=== PATIENT | female | born 2005 | race Caucasian/White ===

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

== ENCOUNTER 2024-06-22 10:00 | Outpatient (CLI) | payer OTHER, SELFPAY ==
--- NOTE | ~2024-06-22 | US_ITS ---
US breast BI complete 06/22/2024 11:00 Indication: Breast cysts Procedure: High-resolution complete bilateral breast ultrasound including all 4 quadrants in the suba reolar locations Comparison: No prior studies for comparison. Findings: Left breast: At 1:00, 3 cm from the nipple there is an oval circumscribed hypoechoic mass w ith posterior acoustic enhancement and no internal vascularity. There is parallel orientation. This m ass measures 9 x 8 x 6 mm. At 7:00, 4 cm from the nipple there is an oval parallel oriented circumscr ibed hypoechoic mass measuring 8 x 5 x 7 mm without internal vascularity. There is subtle posterior a coustic enhancement. Right breast: At 5:00 in the subareolar location of the right breast in the area of palpable concern there is an oval heterogeneous predominantly hypoechoic mass measuring 1.6 x 1.5 x 1.2 cm. No interna l vascularity. There is posterior features. At 11:00, 7 cm from the nipple there is a parallel orient ed hypoechoic encapsulated mass measuring 1.8 x 1.4 x 0.8 cm. Impression: 1: Probable benign bilateral breast masses. BI-RADS CATEGORY 3-PROBABLY BENIGN FINDING RECOMMENDATION: Six-month follow-up limited bilateral breast ultrasound. Reviewed, dictated and finalized at location B. Impression: 1: Probable benign bilateral breast masses. BI-RADS CATEGORY 3-PROBABLY BENIGN FINDING RECOMMENDATION: Six-month follow-up limited bilateral breast ultrasound.
--- OUTSIDE RECORDS SUMMARY | 2024-06-22 11:05 | XMS_ITS | Data Portability ---
Author Organization [place] [facility] [email or web address], Main Office Address [address] [place] [address] Assessment Encounter Date Assessment Date Assessment LastModified by Organization Details LastModified Time 07/05/2022 07/05/2022 YOSSI Gallegos Call office if worse, ER if life-threatening illness RTC in 1 year and p.r.n. She voiced understanding of plan and agrees Not available 07/05/2022 15:33:53 10/21/2022 10/21/2022 YOSSI Gallegos [facility]-10/21/22 Call office if worse, ER if life-threatening illness RTC in 1 year and p.r.n. She voiced understanding of plan and agrees Not available 10/21/2022 13:09:58 Plan of Treatment Reminders Order Date Submit Date Provider Last Modified By Organization Details Last Modified Time Details Appointments None record ed. Lab None record ed. Referral None record ed. Procedures None record ed. Surgeries None record ed. Imaging None record ed. Medication Orders None record ed. Patient TargetsNo targets recorded. Patient Instructions Encounter Date Encounter Id Patient Instructions Last Modified By Organization Details Last Modified Time 10/21/2022 [id number] INFLUENZA VACCIN E TD/TDAP Recommended today, patient declined Ordered P atient will get at local pharmacy/health department MAMMOGRAM Recommended today, but patient declined Ordered N o screening indicated at this time/ no family history CERVICAL SCREENING/PELVIC EXAMINATION No screening necessary patient is up to date COLORECTAL SCREENING Recommended today, but patient declined Ordered C olonoscopy declined. Cologuard ordered No screening necessary until age 45 DEPRESSION SCREENING Continue current medication BMI Overweight Appropr iate NUTRITION Continue healthy eating & exercise PHYSICAL ACTIVITY Appropriate VISION Ordered Recommende d today ALCOHOL USE No alcohol use TOBACCO USE non smoker SEXUALLY ACTIVE Yes, Patient is in monogamous relationship Yes, Safe sex practices, condom use, and other forms of contraceptives that are available were discussed with patient GLUCOSE SCREENING LIPID SCREENING [email or web address] Not available 10/21/2022 13:09:35 Reason for Referral None Reported. Results Created Date Observation Date Name Description Value Unit Range Abnormal Flag Note LastModifiedBy Organization Detail LastModifiedTime 10/03/1910/02/2020 US, pelvi s [facility] [address] [facility] [address], [facility] [place] [address] Zachariah t Name: LY BOND [employer] ion #: [id number] Sex: F : 2005 0 Locati on: RAD Attend ing Physic kelvin: HURSANTOS Christopher MICHEAL Orderi ng Physic kelvin: HURSANTOS Christopher MICHEAL Exam Date: 10/03/19 12:02 PM Exam Name: US PELVIS NON OB Admitt ing Diagno sis(es ): RADIOL OGY REPORT - FINAL EXAM: US PELVIS NON OB HISTOR Y: irregu lar period s COMPAR DAVI: None availa ble. TECHNI QUE: Trans abdomi nal only ultras ound was perfor med. FINDIN GS: Uterus : The uterus measur es 6.9 x 3.5 x 3.7 cm. The myomet rial echo appear ance iswith in normal limits . The endome trium measur es 4.6 mm in thickn ess. Right ovary: The right ovary is obscur ed by bowel, this a techni julio c limiti ng factor in evalua tion of the right ovary. Page 1 of 2 [facility] Zachariah t Name: LY BOND [employer] ion #: [id number] Sex: F : 2005 0 Exam Date: 10/03/19 12:02 PM Exam Name: US PELVIS NON OB Admitt ing Diagno sis(es ): Left ovary: The left ovary is obscur ed by bowel, this a techni julio c limiti ng factor in evalua tion of the left ovary. Cul-de -sac: Unrema rkable IMPRES MADDI: Unrema rkable limite d examin ation. Create d and electr onical ly signed by: Wesley medrano MD Signed Date: 10/03/19 2:29 PM (CT) Dictat ed by: Wesley medrano MD (CT) (CT) Page 2 of 2 [id number] [facility] (Imaging) [address] [place], [address], 06/02/2022 02:32:41 01/06/2001/05/2021 US, pelvi s No observ ation record ed. [id number] [facility] ([facility]) [address] [place], [address], 06/02/2022 02:32:41 Result Notes None recorded. Problems Name Problem SNOMED Code Status Onset Date Resolution Date Notes Provider Name and Address Organization Details Recorded Time Migraine 67842506 Active 2022 BRODIE Shipman [address] [facility], [place] [address], [place], [address], [employer] 3 15:33:56 Mixed anxiety and depressive disorder 051460917 Active 2022 BRODIE Shipman [address] [address], [place], [address], [place] [employer] 3 15:34:00 Attention deficit hyperactivity disorder 410914834 Active 2022 BRODIE Shipman [address] [address], [place], [address], [place] [employer] 3 15:34:18 Problem Notes None recorded. Procedures Surgical History Date Name Laterality Status Provider Name and Address Organization Details Recorded Time other completed Not Available [employer] 04/2022 02:26:28 Imaging Results Imaging Date Name Status LastModified by Organ[facility] Details LastModified Time 10/02/2020 US, pelvis completed [id number] [facility] (Im[facility]) [address] [place], [address], 06/02/2022 02:32:41 01/05/2021 US, pelvis completed [id number] [facility] (Im[facility]) [address] [place], [address], 06/02/2022 02:32:41 Procedure Notes None recorded. Medical Equipment None Reported. Allergies No known drug allergies Medications Name Sig Start Date Stop Date Status Note LastModified by Organization Details LastModified Time amoxicillin 500 mg capsule TK ONE C PO TID TAT active Not Available Not Available No t Available hydrocodone 5 mg-acetamin ophen 325 mg tablet TK 1 OR 2 TS PO Q 6 H PRN P active Not Available Not Available No t Available sumatriptan 25 mg tablet TAKE 1 TABLET ONCE NEEDED FOR MIGRAINE MAY REPEAT IN 2 HOURS IF NO RELIEF. MAX 2 TABS/24 HRS. active Not Available Not Available No t Available methylpheni date 5 mg tablet TAKE 1 TABLET BY MOUTH DAILY AT 3 TO 4 PM active Not Available Not Available No t Available sulfamethox azole 800 mg-trimetho prim 160 mg tablet TAKE 1 TABLET BY MOUTH TWICE DAILY 07/05 completed Not Available Not Available Not Available propranolol 10 mg tablet TAKE 1 TABLET BY MOUTH TWICE A DAY active Not Available Not Available No t Available misoprostol 200 mcg tablet INSERT 2 TABLETS VAGINALLY 4 HOURS PRIOR TO PROCEDURE 10/21 completed Not Available Not Available Not Available fluoxetine 10 mg capsule TAKE 1 CAPSULE BY MOUTH EVERY DAY active Not Available Not Available No t Available norethindro ne acetate 1 mg-ethinyl estradiol 20 mcg tablet Take 1 tablet every day by oral route for 90 days. 07/05 completed Not Available Not Available Not Available fluoxetine 20 mg capsule TAKE 1 CAPSULE BY MOUTH EVERY DAY active Not Available Not Available No t Available naproxen 500 mg tablet TAKE 1 TABLET BY MOUTH TWICE A DAY WITH MEALS active Not Available Not Available No t Available hydroxyzine pamoate 25 mg capsule TAKE 1 CAPSULE DAILY NEEDED FOR ANXIETY active Not Available Not Available No t Available methylpheni date CD 20 mg biphasic 30-70 capsule,ext ended release TAKE 1 CAPSULE BY MOUTH EVERY DAY active Not Available Not Available No t Available drospirenon e 3 mg-ethinyl estradiol 0.02 mg tablet TAKE 1 TABLET BY MOUTH EVERY DAY CONTINUOU SLY SKIPPING PLACEBO TABLETS 10/21 completed Not Available Not Available Not Available drospiren-e .estrad-l.m efol 3 mg-0.02 mg-0.451 mg(24)/0.45 1 mg(4)tablet 10/21 completed Not Available Not Available Not Available Dee 14 mcg/24 hr (up to 3 years) 13.5 mg intrauterin e device Take by intrauter ine route. active Not Available Not Available No t Available Isibloom 0.15 mg-0.03 mg tablet TAKE 1 TABLET BY MOUTH EVERY DAY 07/05 completed Not Available Not Available Not Available Vitals Date Recorded Body mass index (BMI) Body height Body temperature Body weight Systolic blood pressure Diastolic blood pressure Provider Name and Address Organization Details Last Updated DateTime 1 20.7 kg/m2 172.72 cm 96.9 [degF] 55736.5 6 g 110 mm[Hg] 60 mm[Hg] Not Available [facility] 3 02:28:18 Date Recorded Body weight Body mass index (BMI) Percentile per age and sex Body mass index (BMI) Body height Body temperature Heart rate Oxygen saturation Oxygen saturation in Arterial blood by Pulse oximetry Systolic blood pressure Diastolic blood pressure Provider Name and Address Organization Details Last Updated DateTime 3 56790.9 7 g 47 % 21.1 kg/m2 170.18 cm 97.6 [degF] 100 /min 98 % 98 % 116 mm[Hg] 74 mm[Hg] Jill Salinas MA [facility] [employer] [facility] 3 15:11:57 Date Recorded Body height Body mass index (BMI) Percentile per age and sex Body mass index (BMI) Body weight Body temperature Heart rate Oxygen saturation Oxygen saturation in Arterial blood by Pulse oximetry Systolic blood pressure Diastolic blood pressure Provider Name and Address Organization Details Last Updated DateTime 3 170.18 cm 46 % 21.1 kg/m2 14702.9 7 g 97.9 [degF] 90 /min 99 % 99 % 114 mm[Hg] 70 mm[Hg] Jill Salinas MA [facility] [email or web address] 3 10:43:52 Social History Question Answer Notes LastModified by Organizat ion Details LastModified Time Tobacco Smoking Status Never Smoker Not Available [facility] 06/02/2022 02:25:30 What Is Your Level Of Alcohol Consumption? None [id number] Information not available 06/02/2022 What Is Your Level Of Caffeine Consumption? Moderate [id number] Information not available 06/02/2022 In The 14 Days Before Symptom Onset, Have You Had Close Contact With A Laboratory-confi rmed COVID-19 While That Case Was Ill? No [id number] Information not available 06/02/2022 In The 14 Days Before Symptom Onset, Have You Had Close Contact With A Person Who Is Under Investigation For COVID-19 While That Person Was Ill? No [id number] Information not available 06/02/2022 Are You Currently Employed? No Information not available 07/05/2022 What Type Of Diet Are You Following? REGULAR Information not available 07/05/2022 Which Illicit Or Recreational Drugs Have You Used? None [id number] Information not available 06/02/2022 Do You Or Have You Ever Used E-cigarettes Or Vape? Never Used Electronic Cigarettes [id number] Information not available 06/02/2022 What Is The Fluoride Status Of Your Home? Unknown Information not available 07/05/2022 Are There Any Guns Present In Your Home? Yes Information not available 07/05/2022 Do You Use Insect Repellent Routinely? No Information not available 07/05/2022 Where Do You Live? [facility] Information not available 07/05/2022 What Was The Date Of Your Most Recent Tobacco Screening? 10/21/2022 Information not available 10/21/2022 Do You Have Any Pets? Yes Information not available 07/05/2022 What Is Your Relationship Status? Single Information not available 07/05/2022 Do You Use Your Seat Belt Or Car Seat Routinely? Yes Information not available 07/05/2022 Do You Have Smoke And Carbon Monoxide Detectors In Your Home? Yes Information not available 07/05/2022 Are You Passively Exposed To Smoke? No Information not available 07/05/2022 Are There Any Smokers In Your House? No Information not available 07/05/2022 Do You Feel Stressed (tense, Restless, Nervous, Or Anxious, Or Unable To Sleep At Night)? [id number] Information not available 07/05/2022 Do You Use Any Illicit Or Recreational Drugs? No Information not available 07/05/2022 Do You Use Sunscreen Routinely? Yes Information not available 07/05/2022 Do You Have Any Dietary Restrictions? No Information not available 07/05/2022 Do You Or Have You Ever Used Any Other Forms Of Tobacco Or Nicotine? No Information not available 07/05/2022 Sex: Unknown Functional Status Question Answer Note LastModified by Organization D etails LastModified Time What is your exercise level? Heavy Information not available 07/05/2022 Mental Status None recorded. Family History Relationship Description Onset Age of this Age Resolved Age Notes LastModified by Organization Details LastModified Time Father No current problems or disability [id number] Not available 06/02/2022 02:26:30 Mother No current problems or disability [id number] Not available 06/02/2022 02:26:30 Medical History Condition Response ANXIETY DISORDER Y DEPRESSION (INCLUDING POST ) Y Gynecological History Statement/Question Response Abnormal Pap N Date of Last Pap Smear Current Control Method None Age at Menarche 13 Date of LMP 06/17/2020 Obstetrics History GPAL:G 0 P 0 0 0 0 Past Encounters Encounter ID Performer Location Encounter Start Date Encounter Closed Date Diagnosis/Indication Diagnosis SNOMED-CT Code Diagnosis ICD10 Code Diagnosis Note [id number] _ATHENA_M IGRATION_ DEFAULT_1 _1 , 06/19/2020 00:00:00 06/19/2020 15:53:33 [id number] _ATHENA_M IGRATION_ DEFAULT_1 _1 , 01/05/2021 00:00:00 01/05/2021 15:19:28 [id number] BRODIE Shipman_[facility] Internal Med [facility] [address] [facility] [address] [place] [address] 07/05/2022 15:00:55 07/05/2022 15:27:30 Migraine 85048150 G43.909 follows neurology at [facility] n propranolo l, prn naproxen, prn sumatripta n Mixed anxi ety and depressive disorder 723185384 F41.8 follows psychiatry - Dr. Carrera fluoxetine , prn hydroxyzin ecall office if any change in mood or behavior Uses oral contraception 8291226 Z30.41 on continuous dosing due to menstrual migrainefo tigre DIRECTOR OF SURGERY- Dr. Gallegos Attention deficit hyperactivity disorder 778235293 F90.9 follows psychiatry as aboveon ritalin [id number] BRODIE Shipman [facility] [address] [facility], [address] [place] [address] 10/21/2022 10:37:26 10/21/2022 11:05:59 Adult health examination 954310916 Z00.01 Migraine 77298229 G43.90 9 follows neurology at [facility] n propranolo l, prn naproxen, prn sumatripta n Mixed anxi ety and depressive disorder 145218225 F41.8 follows psychiatry - Dr. Carrera fluoxetine , prn hydroxyzin ecall office if any change in mood or behavior Attention deficit hyperactivity disorder 146275973 F90.9 follows psychiatry as aboveon ritalin Uses oral contraception 3779608 Z30.41 on continuous dosing due to menstrual migrainefo tigre DIRECTOR OF SURGERY- Dr. Gallegos Depression screening 171 494128 Z13.31 Normal bod y mass index 19614028 Z68.21 recommend healthy, well balanced mealsfocus on lean meats, fresh vegetables , fresh fruits, whole grainsredu ce fast/proce ssed foods or eating out to no more than 1-2 times per weekaim to get 30 min of exercise most days of the week- walking is a great choicealso recommend resistance training 2-3 times per week Health Concerns Section Related Observation LastModified by Organization Detai ls LastModified Time None Recorded Concern Status LastModified by Organization Details LastModified Time None Recorded Advance Directives Directive None Recorded Payers Encounter Date Sequence Insurance Name Policy Number Policy Delgado Covered Member ID Delgado Member ID Guarantor Name 07/05/2022 1 [facility] [id number] Christiana Bond [id number] Ly Bond 10/21/2022 1 [facility] ([facility] [id number] Christiana Christopher Varun [id number] Ly Bond Notes Date Note Type Note Provider Name and Address Organization Details Recorded Time 07/05/2022 text/html Ly presents today to establish care. 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 Smith [facility], [facility]. Student is a senior, lives with parents, planning to study environmental science in college Past hx:migraineADHDanxi ety/depressionon OCPs She [facility]. She reports the migraines are much better on her current combination of meds. She is down to about 2 per week. Initially they were most days of the week. She denies any aura or neuro symptoms with them. She follows Psychiatry for both her anxiety depression and her ADHD. She feels like her meds are good doses for her. She denies any SI or HI today. 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 She does continuous dosing. She was having menstrual migraines and so this has resolved the menstrual migraines. She declines screening labs today. BRODIE Shipman [address] [employer] [address], [address], [place], [address], [employer] 07/05/2022 15:35:50 10/21/2022 text/html Ly presents today for annual physical, she needs to get a physical in order to play soccer and tennis at [facility]. Overall she is feeling well today and denies any complaints. She tells me her migraines have not really been occurring much at all. She follows neurology for those. Mood is stable on the meds from Psychiatry. She denies any SI or HI today. She declines lab orders today. BRODIE Shimpan [address], [address], [place], [address], [employer] 10/21/2022 13:10:06 OBGyn Episode No OBEpisode recorded.
--- OUTSIDE RECORDS SUMMARY | 2024-06-22 11:05 | XMS_ITS | Referral Summary ---
Author Organization [facility] Address [facility] [place] [address] Care Team Providers Care Sailor Name Role Phone Luis Lubin MD Unavailable [phone] No, Physician Primary Care Provider [phone] Encounters Date Type Department Care Team Description 06/20/2024 3:30 PM CDT Office Visit [facility] [address] [facility] [address] [place] [address] Anny Sinha, CELINA Migraine without aura and without status migrainosus, not intractable (Primary Dx) from Last 3 Months Allergies No known active allergies Medications hydrOXYzine (VISTARIL) 25 mg capsule TAKE 1 CAPSULE BY MOUTH DAILY NEEDED FOR ANXIETY 10/08/19 22 Active methylphenidat e CD (METADATE CD) 30 mg CR capsule Take 1 capsule (30 mg total) by mouth daily 08/29/19 22 Active naproxen (NAPROSYN) 500 mg tablet Take 1 tablet (500 mg total) by mouth 2 (two) times a day with meals 60 tablet 01/13/20 24 Active SUMAtriptan (IMITREX) 25 mg tabletIndicati ons:Migraine TAKE 1 TABLET (25 MG TOTAL) BY MOUTH ONCE NEEDED FOR MIGRAINE MAY REPEAT DOSE ONCE IN 2 HOURS IF NO RELIEF. DO NOT EXCEED 2 DOSES IN 24 HOURS. 9 tablet 3 03/12/20 24 025 Active propranoloL (INDERAL) 20 mg tablet Take 1 tablet (20 mg total) by mouth daily 30 tablet 6 06/21/19 25 Active norethindrone ac-eth estradioL (MICROGESTIN 04/23) 1-20 mg-mcg per tablet 12/23/19 025 Discontinued FLUoxetine 10 mg capsule Take 1 tablet/capsu le (10 mg total) by mouth daily 10/08/19 025 Discontinued(Th erapy completed) drospirenone-e .estradioL-lm. FA 3-0.02-0.451 mg (24) (4) tablet 09/23/19 22 025 Discontinued propranoloL (INDERAL) 20 mg tablet Take 1 tablet (20 mg total) by mouth 2 (two) times a day 60 tablet 6 02/13/20 24 025 Discontinued Active Problems Problem Noted Date Diagnosed Date Post-concussion headache 06/09/2022 Migraine without aura and wi thout status migrainosus, not intractable 11/10/2021 Concussion with no loss of consciousness 021 Mastoid pain 05/12/2011 Social History Tobacco Use Types Packs/Day Years Used Date Smoking Tobacco: Never Smokeless Tobacco: Never Tobacco Cessation:Counseling Given: Not Answered Alcohol Use Standard Drinks/Week Comments Never 0 (1 standard drink = 0.6 oz pur e alcohol) AUDIT-C Answer Date Recorded Frequency of Alcohol Consumption Never 02/08/2019 Average Number of Drinks Not on file 019 Frequency of Binge Drinking Not on file 10/2018 Comments Unknown Sex and Gender Information Value Date Recorded Sex Assigned at Not on file 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 Gender Identity Not on file Sexual Orientation Not on file Last Filed Vital Signs Vital Sign Reading Time Taken Comments Blood Pressure 106/67 06/20/2024 3:10 PM CDT Pulse 61 06/20/2024 3:10 PM CDT Temperature 36.7 C (98 F) 06/20/2024 3:10 PM CDT Respiratory Rate 20 11/11/2021 9:48 AM CDT Oxygen Saturation 94% 06/20/2024 3:10 PM CDT Inhaled Oxygen Concentration - - Weight 57.4 kg (126 lb 9.6 oz) 06/20/2024 3:10 P M CDT Height 169 cm (5' 6.54 ) 06/20/2024 3:10 PM CDT Body Mass Index 20.11 06/20/2024 3:10 PM CDT Plan of Treatment Not on file Insurance [employer] [facility] Address: [address] [address] [place] [address] [place] [address] [employer] [facility] H[facility]O Address: [address] [address] [place] [id number] [address]PPO Address: [address] [place] [address]PPO Address: [address] [place] [address] [facility] Address: [address] [place], [place] [id number] Care Teams Sailor Relationship Specialty Start Date End Date No, Physician PCP - General 01/11/24 Luis Lubin MD [address] [address] Pediatrics 02/05/19
--- OUTSIDE RECORDS SUMMARY | 2024-06-22 11:05 | XMS_ITS | Clinical Summary ---
Author Organization [facility] Address [address] [place] [address] Care Team Providers Care Oracle Database Consultant Name Role Phone Luis Lubin MD Primary Care Provider [phone] Source Comments [facility],non-owned Affiliates and Associated Physician Practices is amultiple site organization consisting of ambulatory clinics and hospital sitesin [place], [place], [place] and [place]. This disclosure is being madepursuant to the Care Everywhere program and may not contain all information available regarding this patient. Last updated 17.[facility] Allergies No known active allergies Medications * Be aware that medications may not be up to date on this document. Alwaysverify current medications with the patient. Medication Sig Dispensed Refills Start Date End Date Status FLUoxetine (PROZAC) 20 MG capsule 04/23/2021 Active FLUoxetine (PROZAC) 10 MG capsule 04/23/2021 Active methylphenidate CR (METADATE CD) 10 MG capsule 2021 Active methylphenidate CR (METADATE CD) 20 MG capsule 05/10/2021 Active norethindrone-ethinyl estradiol (LOESTRIN 04/23) 1-20 MG-MCG tablet 12/22/2020 Active hydrOXYzine pamoate (VISTARIL) 25 MG capsule TAKE 1 CAPSULE BY MOUTH DAILY NEEDED FOR ANXIETY 10/22/2020 Active Active Problems Problem Noted Date Diagnosed Date Problem with fiberglass cast 06/01/2021 Closed nondisplaced fracture of shaft of third metacarpal bone of left hand 05/11/2021 Mastoid pain 05/12/2011 Social History Tobacco Use Types Packs/Day Years Used Date Smoking Tobacco: Never Smokeless Tobacco: Never Comments:Non-smoking househo ld Sex and Gender Information Value Date Recorded Sex Assigned at Not on file Gender Identity Not on file Sexual Orientation Not on file Last Filed Vital Signs Vital Sign Reading Time Taken Comments Blood Pressure 102/76 12/15/2018 9:11 AM CDT Pulse 79 12/15/2018 9:11 AM CDT Temperature 36.9 C (98.4 F) 12/15/2018 9:11 AM CDT Respiratory Rate 17 12/15/2018 9:11 AM CDT Oxygen Saturation 99% 12/15/2018 9:11 AM CDT Inhaled Oxygen Concentration - - Weight 61 kg (134 lb 7.7 oz) 05/11/2021 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 Height 172.5 cm (5' 7.92 ) 05/11/2021 1:00 PM CS T Body Mass Index 20.5 05/11/2021 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 Plan of Treatment Health Maintenance Due Date Last Done Comments HIV SCREENING 2019 HPV VACCINE (1 - 3-dose series) 2019 CHLAMYDIA/GONORRHEA SCREENING 2020 MENINGOCOCCAL (Group B) VACCINE SHARED DECISION-MAKING (1 of 2 - Standard) 2020 HEPATITIS C SCREENING 04/25/2022 DTAP/TDAP/TD VACCINES (1 - Tdap) 2023 HEPATITIS B VACCINE (1 of 3 - 19+ 3-dose series) 2023 COVID-19 VACCINE (4 - 2023-2 5 season) 2023 04/09/2021, 08/26/2020, 08/03/2020 INFLUENZA VACCINE (#1) 2023 DEPRESSION SCREENING 04/04/2024 ZOSTER VACCINE (1 of 2) 2054 HIB VACCINE Aged Out No longer eligi ble based on patient's age to complete this topic MENINGOCOCCAL GROUPS A/C/Y/W VACCINE Aged Out No longer eligible b ased on patient's age to complete this topic PNEUMOCOCCAL VACCINE Aged Out No long er eligible based on patient's age to complete this topic Care Teams Oracle Database Consultant Relationship Specialty Start Date End Date Luis Lubin MD [address] [facility] [address] [place] [address] PCP - General 05/12/11
--- OUTSIDE RECORDS SUMMARY | 2024-06-22 11:05 | XMS_ITS | Clinical Summary ---
Author Organization [facility] Address [address] [place] [address] Care Team Providers Care Dealer Compliance Representative Name Role Phone Luis Lubin MD Unavailable [phone] No, Physician Primary Care Provider [phone] Allergies No known active allergies Medications hydrOXYzine [...] (MICROGESTIN 04/23) 1-20 mg-mcg per tablet 12/23/19 21 025 Discontinued FLUoxetine 10 mg capsule Take 1 tablet/capsu le (10 mg total) by mouth daily 10/08/19 22 025 Discontinued(Th erapy completed) drospirenone-e .estradioL-lm. 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 Gender Identity Not on file Sexual Orientation Not on file Obstetrics History Last Filed Vital Signs Vital Sign Reading [...] 06/20/2024 3:10 PM CDT Plan of Treatment Health Maintenance Due Date Last Done Comments Depression Screening 2004 Hepatitis C Screening 2004 Meningococcal B Vaccine (1 o f 2 - Standard) 2020 Regular Well Visit/Exam 18-64 2022 Covid-19 Vaccine (4 - 2023-2 5 season) 2023 04/09/2021, 08/26/2020, 08/03/2020 Influenza Vaccine (#1) 2023 DTaP/Tdap/Td Vaccine (7 - Td or Tdap) 09/22/2025 09/23/2015, 08/12/2009, 10/30/2005, Additional history exists Hepatitis B Screening Completed 2004 , 2004, 2004, Additional history exists Pneumococcal vaccine <65 Completed 006, 2004, 2004, Additional history exists Varicella Vaccines Completed 08/12/2009, 05/03/2005 HPV Vaccines Completed 01/20/2017, 07/14/2016 Meningococcal Vaccine Completed 11/17/2020, 016 Insurance [facility] CHOICE PLUS [employer] [place] [address] [place] [place] [address] [facility] CHOICE PLUS [facility] CHOICE PLUS CHOICE PLUS Care Teams Dealer Compliance Representative Relationship Specialty Start Date End Date No, Physician PCP - General 01/11/24 Luis Lubin MD [address] [place] [address] Pediatrics 02/05/19
== END 2024-06-22 10:01 | disposition home or self-care (01) ==
PROVIDERS: Visit Provider Obstetrics & Gynecology
DX: N60.01 Solitary cyst of right breast (principal); R92.8 Other abnormal and inconclusive findings on diagnostic imaging of breast
CPT/HCPCS: 76641

== ENCOUNTER 2024-12-24 11:13 | Outpatient (CLI) | payer OTHER, SELFPAY ==
--- NOTE | ~2024-12-24 | US_ITS ---
EXAMINATION: US breast BI limited INDICATION: 19-year old female; BI-RADS 3, evaluate probably benign bilateral breast masses. COMPARISON: 06/22/2024 TECHNIQUE: Targeted sonographic evaluation of the probably benign masses in both breast was completed. FINDINGS: A 0.8 cm circumscribed hypoechoic mass at 5:00 location subareolar in the RIGHT breast reidentified is smaller (prior measurement: 1.6 x 1.5 x 1.2 cm). A 1.6 cm circumscribed hypoechoic mass at 11:00 location 5 cm from the nipple in the RIGHT breast reidentified is slightly smaller (prior measurement: 1.8 x 1.4 x 0.8 cm). A 0.7 cm circumscribed hypoechoic mass at 1:00 location 3 cm from the nipple in the LEFT breast reidentified is slightly smaller (prior measurement: 0.9 x 0.8 x 0.6 cm). A 0.8 cm circumscribed hypoechoic mass at 7:00 location 4 cm from the nipple in the LEFT breast reidentified is unchanged (prior measurement: 0.8 x 0.5 x 0.7 cm). IMPRESSION: Probably benign bilateral breast masses have not significantly changed. RECOMMENDATION: Continue imaging surveillance with bilateral breast ultrasound in 6 months. BI-RADS 3, PROBABLY BENIGN Reviewed, dictated and finalized at location B.
--- OUTSIDE RECORDS SUMMARY | 2024-12-24 12:27 | XMS_ITS | Clinical Summary ---
Author Organization [facility] Address [address] [place] [address] Care Team Providers Care Marine Service Manager Name Role Phone Unavailable Primary Care Provider Unavailabl e Source Comments [facility],non-owned Affiliates and Associated Physician Practices is amultiple site organization consisting of ambulatory clinics and hospital sitesin [place], [place], [place] and [place]. This disclosure is being madepursuant to the Care Everywhere program and may not contain all information available regarding this patient. Last updated 17.[facility] Allergies No known active allergies Medications * Be aware that medications may not be up to date on this document. Alwaysverify current medications with the patient. 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 Height 172.5 cm (5' 7.92) 05/11/2021 1:00 PM CS T Body Mass Index 20.5 05/11/2021 1:00 PM DRUM SANDER Plan of Treatment Health Maintenance Due Date Last Done Comments HIV SCREENING 2019 HPV VACCINE (1 - 3-dose series) 2019 CHLAMYDIA/GONORRHEA SCREENING 2020 MENINGOCOCCAL (Group B) VACCINE SHARED DECISION-MAKING (1 of 2 - Standard) 2020 HEPATITIS C SCREENING 04/25/2022 DTAP/TDAP/TD VACCINES (1 - Tdap) 2023 HEPATITIS B VACCINE (1 of 3 - 19+ 3-dose series) 2023 DEPRESSION SCREENING 04/04/2024 COVID-19 VACCINE (4 - 2024-2 6 season) 2024 04/09/2021, 08/26/2020, 08/03/2020 INFLUENZA VACCINE (#1) 2024 ZOSTER VACCINE (1 of 2) 2054 HIB VACCINE Aged Out No longer eligi ble based on patient's age to complete this topic MENINGOCOCCAL GROUPS A/C/Y/W VACCINE Aged Out No longer eligible b ased on patient's age to complete this topic PNEUMOCOCCAL VACCINE Aged Out No long er eligible based on patient's age to complete this topic Insurance
--- OUTSIDE RECORDS SUMMARY | 2024-12-24 12:27 | XMS_ITS | Clinical Summary ---
Author Organization [facility] Address [address] [place] [address] Care Team Providers Care Disulfurizer Tender Name Role Phone Luis Lubin MD Unavailable [phone] No, Physician Primary Care Provider [phone] Allergies No known active allergies Medications hydrOXYzine (VISTARIL) 25 mg capsule TAKE 1 CAPSULE BY MOUTH DAILY NEEDED FOR ANXIETY 2 Active methylphenidat e CD (METADATE CD) 30 mg CR capsule Take 1 capsule (30 mg total) by mouth daily 2 Active naproxen (NAPROSYN) 500 mg tablet Take 1 tablet (500 mg total) by mouth 2 (two) times a day with meals 60 tablet 4 Active SUMAtriptan (IMITREX) 25 mg tabletIndicati ons:Migraine TAKE 1 TABLET (25 MG TOTAL) BY MOUTH ONCE NEEDED FOR MIGRAINE MAY REPEAT DOSE ONCE IN 2 HOURS IF NO RELIEF. DO NOT EXCEED 2 DOSES IN 24 HOURS. 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 Gender Identity Not on file Sexual Orientation [...] P M CDT Height 169 cm (5' 6.54) 06/20/2024 3:10 PM CDT Body Mass Index 20.11 06/20/2024 3:10 PM CDT Plan of Treatment Health Maintenance Due Date Last Done Comments Depression Screening 2004 Hepatitis C Screening 2004 Meningococcal B Vaccine (1 o f 2 - Standard) 2020 Regular Well Visit/Exam 18-64 2022 Covid-19 Vaccine (4 - 2024-2 6 season) 2024 04/09/2021, 08/26/2020, 08/03/2020 Influenza Vaccine (#1) 2024 DTaP/Tdap/Td Vaccine (7 - Td or Tdap) 09/22/2025 09/23/2015, 08/12/2009, 10/30/2005, Additional history exists Hepatitis B Screening Completed 2004 , 2004, 2004, Additional history exists Pneumococcal vaccine <65 Completed 006, 2004, 2004, Additional history exists Varicella Vaccines Completed 08/12/2009, 05/03/2005 HPV Vaccines Completed 01/20/2017, 07/14/2016 Meningococcal Vaccine Completed 11/17/2020, 016 Insurance [facility] PLUS [facility] H[facility]/PPO Address: [address] [address] [place] [address] [facility] CHOICE PLUS [facility]/PPO Address: [address] [address] [place] [id number] [address] CHOICE PLUS [facility]/PPO Address: [address] [place] [address] CHOICE PLUS [facility]/PPO Address: [address] CHOICE PLUS [facility]/PPO Address: [facility] [address] [place] [address] Care Teams Disulfurizer Tender Relationship Specialty Start Date End Date No, Physician PCP - General 01/11/24 Luis Lubin MD [address] [address] Pediatrics 02/05/19
== END 2024-12-24 11:14 | disposition home or self-care (01) ==
LOC: ANHFOHIMG 11:14
PROVIDERS: Visit Provider Obstetrics & Gynecology
DX: N60.01 Solitary cyst of right breast (principal); R92.8 Other abnormal and inconclusive findings on diagnostic imaging of breast
CPT/HCPCS: 76642